=== PATIENT | female | born 1960 | race Caucasian/White ===

== ENCOUNTER → 2017-01-25 | Outpatient (CLI) | payer BC ==
[~2017-01-25] MED LIST: FOLI0.4T2 PO; NEBI5TAB3 PO; OMEP20CA4 PO
[2017-01-25 09:37] LABS: BASOPHILS % 0.7 % (0.0-2.0); EOSINOPHILS % 1.4 % (0.0-5.0); HEMATOCRIT. 41.1 % (36.0-48.0); HEMOGLOBIN. 13.8 g/dL (12.0-16.0); LYMPHOCYTES % 45.3 % (20.0-50.0); MEAN CORPUSCULAR HEMOGLOBIN 28.7 pg (28.0-32.0); MEAN CORPUSCULAR HGB CONC 33.6 g/dL (31.0-37.0); MEAN CORPUSCULAR VOLUME 85.4 fL (81.0-99.0); MEAN PLATELET VOLUME 8.6 fl (7.4-10.4); MONOCYTES % 7.7 % (2.0-8.0); NEUTROPHILS % 44.9 % (40.0-76.0); PLATELET 212 x1000/uL (130-400); RED BLOOD CELL COUNT 4.81 mill/uL (4.2-5.4); RED CELL DISTRIBUTION WIDTH 15.9 % (11.6-14.6); WHITE BLOOD COUNT 5.4 x1000/uL (4.5-11.0)
[2017-01-25 10:02] LABS: ALANINE AMINOTRANSFERASE 19 IU/L (13-61); ALBUMIN 3.6 g/dL (3.4-5.0); ANION GAP 11; BILIRUBIN DIRECT < 0.1 mg/dL (0.0-0.2); CALCIUM 8.1 mg/dL (8.5-10.1); CARBON DIOXIDE 28 mEq/L (21-32); CHLORIDE 108 mEq/L (98-107); HDL CHOLESTEROL 103 mg/dL (40-59); INDEX HEMOLYSI 1 (1-3); INDEX ICTERIC 1 (1-4); INDEX LIPEMIC 1 (1-3); LDL CHOLESTEROL 128 mg/dL (5-100); TRIGLYCERIDE 132 mg/dL (0-150); UREA NITROGEN BLOOD 8 mg/dL (7-21); eGFR > 60 mL/min (>60)
[2017-01-25 12:13] LABS: CLARITY URINE CLEAR (CLEAR); COLOR URINE YELLOW (YELLOW); GLUCOSE URINE NEGATIVE (NEGATIVE); KETONES URINE NEGATIVE (NEGATIVE); LEUKOCYTE ESTERASE URINE 1+ (NEGATIVE); NITRITE URINE NEGATIVE (NEGATIVE); OCCULT BLOOD URINE NEGATIVE (NEGATIVE); PROTEIN URINE NEGATIVE (NEGATIVE); UROBILINOGEN URINE 0.2 E.U./dL (0.2-1.0)
[2017-01-25 12:32] LABS: RBC URINE NONE SEEN /hpf (0-2); SQUAMOUS EPITHELIAL CELL URINE 1+ /lpf (RARE/1+)
[2017-01-25 12:33] LABS: BACTERIA URINE NONE SEEN; MUCUS URINE 1+ /lpf (< = 2+)
[2017-01-25 15:24] LABS: HEPATITIS B SURFACE ANTIGEN NEGATIVE
[2017-01-25 15:50] LABS: HEPATITIS C VIR.AB < 0.02 INDEXVAL (0.00-0.80)
[2017-01-26 14:11] LABS: VITAMIN D 25-OH 38.3 ng/mL (30.0-100.0)
== END | disposition home or self-care (01) ==
LOC: LAB 08:49
PROVIDERS: ATTEND Internal Medicine
DX: D64.9 Anemia, unspecified (principal)
CPT/HCPCS: 36415; 80053; 80061; 81001; 82248; 82306; 83036; 84443; 85025; 86592; 86803; 87186; 87340

== ENCOUNTER → 2017-03-09 | Outpatient (CLI) | payer BC ==
[2017-03-09 13:13] LABS: ALANINE AMINOTRANSFERASE 37 IU/L (13-61); ALBUMIN 3.7 g/dL (3.4-5.0); BILIRUBIN DIRECT < 0.1 mg/dL (0.0-0.2); INDEX HEMOLYSI 1 (1-3); INDEX ICTERIC 1 (1-4); INDEX LIPEMIC 1 (1-3)
== END | disposition home or self-care (01) ==
LOC: PVL 12:27
PROVIDERS: ATTEND Internal Medicine
DX: I73.9 Peripheral vascular disease, unspecified (principal); D64.9 Anemia, unspecified
CPT/HCPCS: 36415; 80076; 93923

== ENCOUNTER → 2017-06-14 | Outpatient (CLI) | payer BC ==
[2017-06-14 08:26] LABS: BASOPHILS % 0.6 % (0.0-2.0); HEMATOCRIT. 43.4 % (36.0-48.0); HEMOGLOBIN. 14.7 g/dL (12.0-16.0); LYMPHOCYTES % 41.8 % (20.0-50.0); MEAN CORPUSCULAR HEMOGLOBIN 29.3 pg (28.0-32.0); MEAN CORPUSCULAR VOLUME 86.5 fL (81.0-99.0); MEAN PLATELET VOLUME 8.6 fl (7.4-10.4); MONOCYTES % 7.1 % (2.0-8.0); NEUTROPHILS % 49.5 % (40.0-76.0); PLATELET 242 x1000/uL (130-400); RED BLOOD CELL COUNT 5.02 mill/uL (4.2-5.4); RED CELL DISTRIBUTION WIDTH 13.5 % (11.6-14.6)
[2017-06-14 09:02] LABS: CARBON DIOXIDE 30 mEq/L (21-32); CHLORIDE 106 mEq/L (98-107); HDL CHOLESTEROL 94 mg/dL (40-59); LDL CHOLESTEROL 106 mg/dL (5-100)
== END | disposition home or self-care (01) ==
LOC: LAB 07:37
PROVIDERS: ATTEND Internal Medicine
DX: D64.9 Anemia, unspecified (principal)
CPT/HCPCS: 36415; 80053; 80061; 85025

== ENCOUNTER → 2017-06-26 | Outpatient (CLI) | payer BC | END | disposition home or self-care (01) | LOC: MAMMO 12:35 | PROVIDERS: ATTEND Internal Medicine | DX: Z12.31 Encounter for screening mammogram for malignant neoplasm of breast (principal); M79.672 Pain in left foot; M79.671 Pain in right foot | CPT/HCPCS: 73630; G0202 ==

== ENCOUNTER → 2017-12-05 | Outpatient (CLI) | payer BC | END | disposition home or self-care (01) | LOC: LAB 09:37 | PROVIDERS: ATTEND Nurse Practitioner Acute Care | DX: R06.02 Shortness of breath (principal) | CPT/HCPCS: 87804 ==

== ENCOUNTER → 2018-01-17 | Outpatient (CLI) | payer BC ==
[2018-01-17 08:46] LABS: BASOPHILS % 0.6 % (0.0-2.0); EOSINOPHILS % 0.4 % (0.0-5.0); HEMATOCRIT. 42.7 % (36.0-48.0); HEMOGLOBIN. 14.5 g/dL (12.0-16.0); LYMPHOCYTES % 38.2 % (20.0-50.0); MEAN CORPUSCULAR HEMOGLOBIN 29.8 pg (28.0-32.0); MEAN CORPUSCULAR VOLUME 87.6 fL (81.0-99.0); MEAN PLATELET VOLUME 8.3 fl (7.4-10.4); NEUTROPHILS % 53.8 % (40.0-76.0); PLATELET 277 x1000/uL (130-400); RED BLOOD CELL COUNT 4.87 mill/uL (4.2-5.4); RED CELL DISTRIBUTION WIDTH 13.3 % (11.6-14.6)
[2018-01-17 09:21] LABS: CHLORIDE 105 mEq/L (98-107)
[2018-01-17 09:43] LABS: HDL CHOLESTEROL 101 mg/dL (40-59); LDL CHOLESTEROL 106 mg/dL (5-100); TOTAL IRON BINDING CAPACITY 386 ug/dL (250-450)
[2018-01-17 11:16] LABS: FOLIC ACID (FOLATE) SERUM > 20.00 ng/mL (>5.38)
[2018-01-17 11:21] LABS: FERRITIN 20 ng/mL (10-291)
[2018-01-17 14:15] LABS: CLARITY URINE CLEAR (CLEAR); COLOR URINE YELLOW (YELLOW); KETONES URINE NEGATIVE (NEGATIVE); LEUKOCYTE ESTERASE URINE NEGATIVE (NEGATIVE); NITRITE URINE NEGATIVE (NEGATIVE); OCCULT BLOOD URINE NEGATIVE (NEGATIVE); PH URINE 6.5 (4.5-8.0); PROTEIN URINE NEGATIVE (NEGATIVE); SPECIFIC GRAVITY URINE 1.018 (1.005-1.030)
[2018-01-18 05:20] LABS: PROLACTIN 13.1 ng/mL (4.8-23.3); VITAMIN D 25-OH 28.7 ng/mL (30.0-100.0)
== END | disposition home or self-care (01) ==
LOC: LAB 07:40
PROVIDERS: ATTEND Internal Medicine
DX: D64.9 Anemia, unspecified (principal); R06.02 Shortness of breath; R79.89 Other specified abnormal findings of blood chemistry
CPT/HCPCS: 36415; 80053; 80061; 81003; 82306; 82728; 82746; 83036; 83540; 83550; 83970; 84146; 84443; 85025

== ENCOUNTER → 2018-04-19 | Outpatient (CLI) | payer BC | END | disposition home or self-care (01) | LOC: MAMMO 11:14 | PROVIDERS: ATTEND Internal Medicine | DX: M81.0 Age-related osteoporosis without current pathological fracture (principal) | CPT/HCPCS: 77080 ==

== ENCOUNTER → 2018-08-20 | Outpatient (CLI) | payer BC | END | disposition home or self-care (01) | LOC: CARD 09:41 | PROVIDERS: ATTEND Nurse Practitioner Acute Care | DX: R07.89 Other chest pain (principal) | CPT/HCPCS: 93017 ==

== ENCOUNTER → 2018-12-26 | Outpatient (CLI) | payer BC ==
[2018-12-26 08:06] LABS: BASOPHILS % 0.6 % (0.0-2.0); EOSINOPHILS % 1.9 % (0.0-5.0); HEMATOCRIT. 43.4 % (36.0-48.0); HEMOGLOBIN. 14.5 g/dL (12.0-16.0); LYMPHOCYTES % 35.5 % (20.0-50.0); MEAN CORPUSCULAR HEMOGLOBIN 28.9 pg (28.0-32.0); MEAN CORPUSCULAR VOLUME 86.3 fL (81.0-99.0); MEAN PLATELET VOLUME 8.6 fl (7.4-10.4); MONOCYTES % 7.1 % (2.0-8.0); NEUTROPHILS % 54.9 % (40.0-76.0); PLATELET 262 x1000/uL (130-400); RED BLOOD CELL COUNT 5.02 mill/uL (4.2-5.4); RED CELL DISTRIBUTION WIDTH 13.4 % (11.6-14.6)
[2018-12-26 08:51] LABS: CHLORIDE 109 mEq/L (98-107)
[2018-12-26 09:04] LABS: LDL CHOLESTEROL 88 mg/dL (5-100)
[2018-12-26 09:06] LABS: TOTAL IRON BINDING CAPACITY 424 ug/dL (250-450)
[2018-12-26 09:08] LABS: HDL CHOLESTEROL 87 mg/dL (40-59)
[2018-12-26 09:09] LABS: T4 FREE 0.85 ng/dL (0.76-1.46)
[2018-12-26 10:04] LABS: VITAMIN B12 SERUM 424 pg/mL (211-911)
[2018-12-26 10:07] LABS: FOLIC ACID (FOLATE) SERUM > 20.00 ng/mL (>5.38)
[2018-12-26 11:27] LABS: FERRITIN 8 ng/mL (10-291)
== END | disposition home or self-care (01) ==
LOC: LAB 07:05
PROVIDERS: ATTEND Internal Medicine
DX: D64.9 Anemia, unspecified (principal)
CPT/HCPCS: 36415; 80061; 82306; 82607; 82728; 82746; 83036; 83540; 83550; 84439; 84443; 84481

== ENCOUNTER → 2019-03-21 | Outpatient (CLI) | payer BC ==
[~2019-03-21] MED LIST changes: +AMLO2.5T2 PO; +CLOP75TA4 PO; +MIRT15TA PO; +PROT40 PO; +RANI300T7 PO
== END | disposition home or self-care (01) ==
LOC: US 08:55
PROVIDERS: ATTEND Internal Medicine Gastroenterology
DX: K21.9 Gastro-esophageal reflux disease without esophagitis (principal); K83.8 Other specified diseases of biliary tract
CPT/HCPCS: 76700

== ENCOUNTER → 2019-04-14 | Outpatient (CLI) | payer BC ==
[2019-04-14 11:01] LABS: BASOPHILS % 0.5 % (0.0-2.0); HEMATOCRIT. 39.8 % (36.0-48.0); HEMOGLOBIN. 13.2 g/dL (12.0-16.0); LYMPHOCYTES % 43.7 % (20.0-50.0); MEAN CORPUSCULAR VOLUME 84.3 fL (81.0-99.0); MEAN PLATELET VOLUME 8.5 fl (7.4-10.4); MONOCYTES % 6.9 % (2.0-8.0); NEUTROPHILS % 47.9 % (40.0-76.0); PLATELET 253 x1000/uL (130-400); RED BLOOD CELL COUNT 4.73 mill/uL (4.2-5.4); RED CELL DISTRIBUTION WIDTH 14.4 % (11.6-14.6)
[2019-04-14 11:15] LABS: CHLORIDE 107 mEq/L (98-107)
[2019-04-14 11:18] LABS: GAMMA GLUTAMYL TRANSPEPTIDASE 19 IU/L (7-32)
[2019-04-14 11:21] LABS: LDL CHOLESTEROL 92 mg/dL (5-100)
[2019-04-14 11:23] LABS: HDL CHOLESTEROL 92 mg/dL (40-59); T4 FREE 0.81 ng/dL (0.76-1.46)
== END | disposition home or self-care (01) ==
LOC: LAB 10:42
PROVIDERS: ATTEND Internal Medicine Gastroenterology
DX: D64.9 Anemia, unspecified (principal)
CPT/HCPCS: 36415; 80061; 82977; 83036; 84439; 84443

== ENCOUNTER 2019-04-15 09:39 | Day surgery (SDC) | payer BC ==
[~2019-04-15] VITALS: Ht 160 cm; Wt 102.5 kg
[~2019-04-15 09:39] MED LIST changes: +LACTATED RINGERS 1,000 ML IV SCH
[2019-04-15 10:18] LABS: UCG SCREEN NEGATIVE
[2019-04-15] MEDS ORDERED: SIMETHICONE 40 MG/0.6 ML 30ML ONE (11:26)
[2019-04-15] MEDS ORDERED: LIDOCAINE HCL/PF 1% 10 MG/ML 5ML VIAL ONE (11:37)
[2019-04-15] MEDS ORDERED: MIDAZOLAM HCL 2 MG/2 ML VIAL ONE (11:37)
[2019-04-15] MEDS ORDERED: PROPOFOL 200MG/20ML VIAL IV ONE ×3 (11:37→12:10)
== END 2019-04-15 14:00 | disposition home or self-care (01) ==
LOC: OR 09:39
PROVIDERS: ATTEND Internal Medicine Gastroenterology
DX: K52.9 Noninfective gastroenteritis and colitis, unspecified (principal); K57.30 Diverticulosis of large intestine without perforation or abscess without bleeding; K21.9 Gastro-esophageal reflux disease without esophagitis; D64.9 Anemia, unspecified; E66.01 Morbid (severe) obesity due to excess calories; I10 Essential (primary) hypertension; E78.5 Hyperlipidemia, unspecified; G47.30 Sleep apnea, unspecified; M85.88 Other specified disorders of bone density and structure, other site; Z86.73 Personal history of transient ischemic attack (TIA), and cerebral infarction without residual deficits; Z98.84 Bariatric surgery status; Z79.899 Other long term (current) drug therapy; Z88.8 Allergy status to other drugs, medicaments and biological substances; Z68.41 Body mass index [BMI] 40.0-44.9, adult
CPT/HCPCS: 43239; 45378; 81025; 88305; 88312; 88313; 93005; J2250; J2704; J3490

== ENCOUNTER → 2019-07-22 | Outpatient (CLI) | payer BC ==
[~2019-07-22] MED LIST changes: -LACTATED RINGERS 1,000 ML IV SCH
== END | disposition home or self-care (01) ==
LOC: MAMMO 09:24
PROVIDERS: ATTEND Internal Medicine
DX: Z12.31 Encounter for screening mammogram for malignant neoplasm of breast (principal)
CPT/HCPCS: 77067

== ENCOUNTER → 2019-07-22 | Outpatient (CLI) | payer BC | END | disposition home or self-care (01) | LOC: MRI 09:29 | PROVIDERS: ATTEND Internal Medicine Gastroenterology | DX: K83.8 Other specified diseases of biliary tract (principal); K21.9 Gastro-esophageal reflux disease without esophagitis; Q45.3 Other congenital malformations of pancreas and pancreatic duct | CPT/HCPCS: 74181 ==

== ENCOUNTER → 2019-11-11 | Outpatient (CLI) | payer BC ==
[2019-11-11 15:35] LABS: BASOPHILS % 0.7 % (0.0-2.0); EOSINOPHILS % 0.9 % (0.0-5.0); HEMATOCRIT. 38.2 % (36.0-48.0); HEMOGLOBIN. 12.7 g/dL (12.0-16.0); LYMPHOCYTES % 29.8 % (20.0-50.0); MEAN CORPUSCULAR HEMOGLOBIN 27.5 pg (28.0-32.0); MEAN CORPUSCULAR VOLUME 82.4 fL (81.0-99.0); MEAN PLATELET VOLUME 8.7 fl (7.4-10.4); MONOCYTES % 7.3 % (2.0-8.0); NEUTROPHILS % 61.3 % (40.0-76.0); PLATELET 291 x1000/uL (130-400); RED BLOOD CELL COUNT 4.63 mill/uL (4.2-5.4)
[2019-11-11 15:46] LABS: CHLORIDE 108 mEq/L (98-107)
[2019-11-11 16:00] LABS: PARTIAL THROMBOPLASTIN TIME 27.3 sec (23.4-31.0); PROTHROMBIN TIME 10.1 sec (9.6-11.0)
== END | disposition home or self-care (01) ==
LOC: LAB 14:25
PROVIDERS: ATTEND Specialist
DX: I80.9 Phlebitis and thrombophlebitis of unspecified site (principal)
CPT/HCPCS: 36415; 80053; 85025

== ENCOUNTER → 2019-11-11 | Outpatient (CLI) | payer BC | END | disposition home or self-care (01) | LOC: US 07:55 | PROVIDERS: ATTEND Specialist | DX: I82.811 Embolism and thrombosis of superficial veins of right lower extremity (principal) | CPT/HCPCS: 93970 ==

== ENCOUNTER → 2020-02-02 | Outpatient (CLI) | payer BC ==
[2020-02-02 12:31] LABS: BASOPHILS % 0.9 % (0.0-2.0); EOSINOPHILS % 1.6 % (0.0-5.0); HEMATOCRIT. 39.2 % (36.0-48.0); HEMOGLOBIN. 13.1 g/dL (12.0-16.0); LYMPHOCYTES % 47.9 % (20.0-50.0); MEAN CORPUSCULAR HEMOGLOBIN 27.3 pg (28.0-32.0); MEAN CORPUSCULAR VOLUME 81.9 fL (81.0-99.0); MEAN PLATELET VOLUME 8.2 fl (7.4-10.4); MONOCYTES % 8.4 % (2.0-8.0); NEUTROPHILS % 41.2 % (40.0-76.0); PLATELET 275 x1000/uL (130-400); RED BLOOD CELL COUNT 4.79 mill/uL (4.2-5.4)
[2020-02-02 13:07] LABS: CHLORIDE 109 mEq/L (98-107)
[2020-02-02 13:17] LABS: LDL CHOLESTEROL 90 mg/dL (5-100); TOTAL IRON BINDING CAPACITY 400 ug/dL (250-450)
[2020-02-02 13:20] LABS: HDL CHOLESTEROL 96 mg/dL (40-59)
== END | disposition home or self-care (01) ==
LOC: LAB 11:59
PROVIDERS: ATTEND Internal Medicine
DX: D64.9 Anemia, unspecified (principal)
CPT/HCPCS: 36415; 80053; 80061; 82728; 83036; 83540; 83550; 84443; 85025

== ENCOUNTER → 2020-06-10 | Outpatient (CLI) | payer BC ==
[2020-06-10 08:48] LABS: CLARITY URINE CLEAR (CLEAR); COLOR URINE YELLOW (YELLOW); KETONES URINE TRACE (NEGATIVE); LEUKOCYTE ESTERASE URINE NEGATIVE (NEGATIVE); NITRITE URINE NEGATIVE (NEGATIVE); OCCULT BLOOD URINE NEGATIVE (NEGATIVE); PH URINE 6.5 (4.5-8.0); PROTEIN URINE NEGATIVE (NEGATIVE); SPECIFIC GRAVITY URINE 1.022 (1.005-1.030)
[2020-06-10 09:16] LABS: CANNABINOID URINE SCREEN NEGATIVE (NEGATIVE); PHENCYCLIDINE URINE SCREEN NEGATIVE (NEGATIVE)
[2020-06-10 09:17] LABS: *AMPHETAMINES SCREEN URINE NEGATIVE (NEGATIVE); *BARBITURATES SCREEN URINE NEGATIVE (NEGATIVE); *BENZODIAZEPINES SCREEN URINE PRESUMTIVE POSITIVE (NEGATIVE); *COCAINE SCREEN URINE NEGATIVE (NEGATIVE); METHADONE URINE SCREEN NEGATIVE (NEGATIVE); OPIATES URINE SCREEN NEGATIVE (NEGATIVE)
== END | disposition home or self-care (01) ==
LOC: LAB 07:03
PROVIDERS: ATTEND Internal Medicine
DX: M79.606 Pain in leg, unspecified (principal)
CPT/HCPCS: 80305; 81003

== ENCOUNTER → 2020-09-22 | Outpatient (CLI) | payer BC | END | disposition home or self-care (01) | LOC: LAB 09:35 | PROVIDERS: ATTEND Internal Medicine | DX: Z20.828 Contact with and (suspected) exposure to other viral communicable diseases (principal) | CPT/HCPCS: C9803; U0003 ==

== ENCOUNTER → 2020-11-17 | Outpatient (CLI) | payer BC ==
[~2020-11-17] MED LIST changes: +CLOP-31 PO; -CLOP75TA4 PO; +MIRT-118 PO; -MIRT15TA PO
[2020-11-17 10:40] LABS: BASOPHILS % 0.7 % (0.0-2.0); EOSINOPHILS % 1.9 % (0.0-5.0); HEMATOCRIT. 39.2 % (36.0-48.0); HEMOGLOBIN. 12.6 g/dL (12.0-16.0); LYMPHOCYTES % 42.8 % (20.0-50.0); MEAN CORPUSCULAR HEMOGLOBIN 25.7 pg (28.0-32.0); MEAN CORPUSCULAR VOLUME 79.6 fL (81.0-99.0); MEAN PLATELET VOLUME 8.2 fl (7.4-10.4); MONOCYTES % 6.9 % (2.0-8.0); NEUTROPHILS % 47.7 % (40.0-76.0); PLATELET 307 x1000/uL (130-400); RED BLOOD CELL COUNT 4.92 mill/uL (4.2-5.4); RED CELL DISTRIBUTION WIDTH 17.5 % (11.6-14.6)
[2020-11-17 10:48] LABS: CLARITY URINE CLEAR (CLEAR); COLOR URINE YELLOW (YELLOW); KETONES URINE NEGATIVE (NEGATIVE); LEUKOCYTE ESTERASE URINE NEGATIVE (NEGATIVE); NITRITE URINE NEGATIVE (NEGATIVE); OCCULT BLOOD URINE NEGATIVE (NEGATIVE); PROTEIN URINE NEGATIVE (NEGATIVE); SPECIFIC GRAVITY URINE 1.017 (1.005-1.030); UROBILINOGEN URINE 0.2 E.U./dL (0.2-1.0)
[2020-11-17 11:05] LABS: CHLORIDE 107 mEq/L (98-107)
[2020-11-17 11:16] LABS: LDL CHOLESTEROL 105 mg/dL (5-100)
[2020-11-17 11:18] LABS: HDL CHOLESTEROL 104 mg/dL (40-59)
[2020-11-17 11:19] LABS: TOTAL IRON BINDING CAPACITY 479 ug/dL (250-450)
[2020-11-17 11:44] LABS: VITAMIN B12 SERUM 296 pg/mL (211-911)
[2020-11-17 13:17] LABS: FERRITIN 12 ng/mL (10-291)
== END | disposition home or self-care (01) ==
LOC: LAB 09:58
PROVIDERS: ATTEND Internal Medicine
DX: D64.9 Anemia, unspecified (principal); R53.83 Other fatigue; E78.5 Hyperlipidemia, unspecified
CPT/HCPCS: 36415; 80053; 80061; 81003; 82306; 82607; 82728; 83036; 83540; 83550; 84443; 84550; 85025; 85651

== ENCOUNTER → 2020-11-17 | Outpatient (CLI) | payer OTHER | END | disposition home or self-care (01) | LOC: MAMMO 10:06 | PROVIDERS: ATTEND Radiology Diagnostic Radiology | DX: Z12.31 Encounter for screening mammogram for malignant neoplasm of breast (principal) | CPT/HCPCS: 77067 ==

== ENCOUNTER → 2021-02-24 | Outpatient (CLI) | payer BC ==
[~2021-02-24] MED LIST changes: -FOLI0.4T2 PO; +FOLI0.4T6 PO
[2021-02-24 07:42] LABS: BASOPHILS % 0.5 % (0.0-2.0); EOSINOPHILS % 1.5 % (0.0-5.0); HEMATOCRIT. 35.6 % (36.0-48.0); HEMOGLOBIN. 11.6 g/dL (12.0-16.0); LYMPHOCYTES % 46.5 % (20.0-50.0); MEAN CORPUSCULAR HEMOGLOBIN 25.8 pg (28.0-32.0); MEAN CORPUSCULAR VOLUME 78.9 fL (81.0-99.0); MEAN PLATELET VOLUME 8.1 fl (7.4-10.4); MONOCYTES % 9.6 % (2.0-8.0); NEUTROPHILS % 41.9 % (40.0-76.0); PLATELET 366 x1000/uL (130-400); RED BLOOD CELL COUNT 4.51 mill/uL (4.2-5.4); RED CELL DISTRIBUTION WIDTH 16.3 % (11.6-14.6)
[2021-02-24 07:53] LABS: CHLORIDE 107 mEq/L (98-107)
[2021-02-24 08:02] LABS: TOTAL IRON BINDING CAPACITY 468 ug/dL (250-450)
== END | disposition home or self-care (01) ==
LOC: LAB 07:04
PROVIDERS: ATTEND Internal Medicine
DX: D64.9 Anemia, unspecified (principal)
CPT/HCPCS: 36415; 80048; 82728; 83540; 83550; 85025

== ENCOUNTER → 2021-06-03 | Outpatient (CLI) | payer BC ==
[~2021-06-03] MED LIST changes: -CLOP-31 PO; +CLOP75TA4 PO
== END | disposition home or self-care (01) ==
LOC: RAD 11:03
PROVIDERS: ATTEND Internal Medicine Hematology & Oncology
DX: M81.0 Age-related osteoporosis without current pathological fracture (principal); M85.88 Other specified disorders of bone density and structure, other site; C43.71 Malignant melanoma of right lower limb, including hip; D50.0 Iron deficiency anemia secondary to blood loss (chronic)
CPT/HCPCS: 77080

== ENCOUNTER → 2021-06-22 | Outpatient (CLI) | payer BC ==
[~2021-06-22] MED LIST changes: +CLOP-31 PO; -CLOP75TA4 PO
== END | disposition home or self-care (01) ==
LOC: MRI 11:04
PROVIDERS: ATTEND Podiatrist Foot & Ankle Surgery
DX: S93.422A Sprain of deltoid ligament of left ankle, initial encounter (principal); S93.692A Other sprain of left foot, initial encounter; M72.2 Plantar fascial fibromatosis; M77.51 Other enthesopathy of right foot and ankle; M18.9 Osteoarthritis of first carpometacarpal joint, unspecified; M19.072 Primary osteoarthritis, left ankle and foot; X58.XXXA Exposure to other specified factors, initial encounter; Y93.89 Activity, other specified; Y92.89 Other specified places as the place of occurrence of the external cause; Y99.8 Other external cause status; M77.52 Other enthesopathy of left foot and ankle
CPT/HCPCS: 73630; 73721

== ENCOUNTER → 2021-09-01 | Outpatient (CLI) | payer BC ==
[2021-09-01 07:34] LABS: BASOPHILS % 0.6 % (0.0-2.0); EOSINOPHILS % 2.2 % (0.0-5.0); HEMATOCRIT. 42.2 % (36.0-48.0); HEMOGLOBIN. 14.1 g/dL (12.0-16.0); LYMPHOCYTES % 35.2 % (20.0-50.0); MEAN CORPUSCULAR HEMOGLOBIN 29.9 pg (28.0-32.0); MEAN CORPUSCULAR VOLUME 89.6 fL (81.0-99.0); MEAN PLATELET VOLUME 8.3 fl (7.4-10.4); MONOCYTES % 11.4 % (2.0-8.0); NEUTROPHILS % 50.6 % (40.0-76.0); PLATELET 212 x1000/uL (130-400); RED BLOOD CELL COUNT 4.72 mill/uL (4.2-5.4); RED CELL DISTRIBUTION WIDTH 13.3 % (11.6-14.6)
[2021-09-01 07:47] LABS: CHLORIDE 109 mEq/L (98-107)
[2021-09-01 07:56] LABS: TOTAL IRON BINDING CAPACITY 287 ug/dL (250-450)
== END | disposition home or self-care (01) ==
LOC: LAB 07:04
PROVIDERS: ATTEND Internal Medicine
DX: D64.9 Anemia, unspecified (principal); R06.02 Shortness of breath
CPT/HCPCS: 36415; 80053; 82728; 83036; 83540; 83550; 83735; 85025

== ENCOUNTER → 2021-10-31 | Outpatient (CLI) | payer BC | END | disposition home or self-care (01) | LOC: RAD 13:24 | PROVIDERS: ATTEND Podiatrist Foot & Ankle Surgery | DX: S92.321A Displaced fracture of second metatarsal bone, right foot, initial encounter for closed fracture (principal); S92.811A Other fracture of right foot, initial encounter for closed fracture; M25.571 Pain in right ankle and joints of right foot; X58.XXXA Exposure to other specified factors, initial encounter; Y93.89 Activity, other specified; Y92.89 Other specified places as the place of occurrence of the external cause; Y99.8 Other external cause status | CPT/HCPCS: 73630 ==

== ENCOUNTER → 2021-12-15 | Outpatient (CLI) | payer OTHER | END | disposition home or self-care (01) | LOC: MAMMO 07:43 | PROVIDERS: ATTEND Internal Medicine | DX: Z12.31 Encounter for screening mammogram for malignant neoplasm of breast (principal) | CPT/HCPCS: 77067 ==

== ENCOUNTER → 2022-10-06 | Outpatient (CLI) | payer BC ==
[2022-10-06 11:21] LABS: BASOPHILS % 0.7 % (0.0-2.0); EOSINOPHILS % 0.3 % (0.0-5.0); HEMATOCRIT. 43.5 % (36.0-48.0); HEMOGLOBIN. 14.7 g/dL (12.0-16.0); LYMPHOCYTES % 30.9 % (20.0-50.0); MEAN CORPUSCULAR HEMOGLOBIN 30.5 pg (28.0-32.0); MEAN CORPUSCULAR VOLUME 90.3 fL (81.0-99.0); MONOCYTES % 7.7 % (2.0-8.0); NEUTROPHILS % 60.4 % (40.0-76.0); RED BLOOD CELL COUNT 4.82 mill/uL (4.2-5.4); RED CELL DISTRIBUTION WIDTH 14.1 % (11.6-14.6)
[2022-10-06 12:17] LABS: CHLORIDE 107 mEq/L (98-107)
[2022-10-06 12:35] LABS: PLATELET 240 x1000/uL (130-400); VITAMIN B12 SERUM 224 pg/mL (211-911)
[2022-10-06 12:37] LABS: CREATINE KINASE 116 IU/L (26-192); HDL CHOLESTEROL 113 mg/dL (40-59); LDL CHOLESTEROL 153 mg/dL (5-100)
== END | disposition home or self-care (01) ==
LOC: LAB 10:51
PROVIDERS: ATTEND Specialist
DX: R94.31 Abnormal electrocardiogram [ECG] [EKG] (principal); I11.9 Hypertensive heart disease without heart failure; E78.2 Mixed hyperlipidemia
CPT/HCPCS: 36415; 80053; 80061; 82306; 82550; 82607; 84443; 85025

== ENCOUNTER → 2022-11-20 | Outpatient (CLI) | payer BC | END | disposition home or self-care (01) | LOC: MRI 10:16 | PROVIDERS: ATTEND Psychiatry & Neurology Neurology | DX: M48.02 Spinal stenosis, cervical region (principal); M50.21 Other cervical disc displacement, high cervical region; M47.812 Spondylosis without myelopathy or radiculopathy, cervical region; R51.9 Headache, unspecified | CPT/HCPCS: 70551; 72141 ==

== ENCOUNTER → 2023-02-28 | Outpatient (CLI) | payer BC ==
[2023-02-28 10:40] LABS: BASOPHILS % 0.5 % (0.0-2.0); EOSINOPHILS % 0.4 % (0.0-5.0); HEMATOCRIT. 43.9 % (36.0-48.0); HEMOGLOBIN. 15.1 g/dL (12.0-16.0); LYMPHOCYTES % 36.2 % (20.0-50.0); MEAN PLATELET VOLUME 8.2 fl (7.4-10.4); MONOCYTES % 5.6 % (2.0-8.0); NEUTROPHILS % 57.3 % (40.0-76.0); PLATELET 261 x1000/uL (130-400); RED BLOOD CELL COUNT 5.04 mill/uL (4.2-5.4); RED CELL DISTRIBUTION WIDTH 13.4 % (11.6-14.6)
[2023-02-28 10:43] LABS: CLARITY URINE CLEAR (CLEAR); COLOR URINE YELLOW (YELLOW); KETONES URINE NEGATIVE (NEGATIVE); LEUKOCYTE ESTERASE URINE TRACE (NEGATIVE); NITRITE URINE NEGATIVE (NEGATIVE); OCCULT BLOOD URINE NEGATIVE (NEGATIVE); PROTEIN URINE NEGATIVE (NEGATIVE); SPECIFIC GRAVITY URINE 1.013 (1.005-1.030); UROBILINOGEN URINE 0.2 E.U./dL (0.2-1.0)
[2023-02-28 10:56] LABS: CHLORIDE 105 mEq/L (98-107)
[2023-02-28 11:12] LABS: HDL CHOLESTEROL 103 mg/dL (40-59); LDL CHOLESTEROL 101 mg/dL (5-100)
[2023-02-28 11:49] LABS: FOLIC ACID (FOLATE) SERUM > 20.00 ng/mL (>5.38)
[2023-02-28 12:44] LABS: FERRITIN 27 ng/mL (10-291)
== END | disposition home or self-care (01) ==
LOC: LAB 10:09
PROVIDERS: ATTEND Internal Medicine
DX: Z11.59 Encounter for screening for other viral diseases (principal); E78.5 Hyperlipidemia, unspecified; R73.09 Other abnormal glucose; N93.0 Postcoital and contact bleeding; E55.9 Vitamin D deficiency, unspecified
CPT/HCPCS: 36415; 80053; 80061; 81003; 82306; 82728; 82746; 83036; 84443; 85025

== ENCOUNTER → 2023-03-22 | Outpatient (CLI) | payer BC ==
[2023-03-22 11:09] LABS: CLARITY URINE CLEAR (CLEAR); COLOR URINE YELLOW (YELLOW); KETONES URINE TRACE (NEGATIVE); LEUKOCYTE ESTERASE URINE TRACE (NEGATIVE); NITRITE URINE NEGATIVE (NEGATIVE); OCCULT BLOOD URINE NEGATIVE (NEGATIVE); PH URINE 6.5 (4.5-8.0); PROTEIN URINE TRACE (NEGATIVE); SPECIFIC GRAVITY URINE 1.016 (1.005-1.030)
[2023-03-22 11:19] LABS: CHLORIDE 101 mEq/L (98-107)
== END | disposition home or self-care (01) ==
LOC: LAB 10:07
DX: N39.0 Urinary tract infection, site not specified (principal); E87.1 Hypo-osmolality and hyponatremia
CPT/HCPCS: 36415; 80048; 81003

== ENCOUNTER → 2023-07-11 | Outpatient (CLI) | payer BC ==
[2023-07-11 09:11] LABS: INDEX HEMOLYSI 1 (1-3); INDEX ICTERIC 1 (1-4); INDEX LIPEMIC 1 (1-3)
[2023-07-11 09:15] LABS: IRON 86 ug/dL (50-175); TOTAL IRON BINDING CAPACITY 338 ug/dL (250-450)
== END | disposition home or self-care (01) ==
LOC: LAB 08:23
PROVIDERS: ATTEND Internal Medicine
DX: D64.9 Anemia, unspecified (principal)
CPT/HCPCS: 36415; 82728; 83540; 83550

== ENCOUNTER → 2023-07-11 | Outpatient (CLI) | payer BC ==
[2023-07-11 09:02] LABS: BASOPHILS % 0.7 % (0.0-2.0); EOSINOPHILS % 0.3 % (0.0-5.0); HEMATOCRIT. 41.9 % (36.0-48.0); HEMOGLOBIN. 14.3 g/dL (12.0-16.0); LYMPHOCYTES % 39.1 % (20.0-50.0); MEAN CORPUSCULAR HEMOGLOBIN 29.6 pg (28.0-32.0); MEAN CORPUSCULAR HGB CONC 34.2 g/dL (31.0-37.0); MEAN CORPUSCULAR VOLUME 86.7 fL (81.0-99.0); MEAN PLATELET VOLUME 8.2 fl (7.4-10.4); MONOCYTES % 7.2 % (2.0-8.0); NEUTROPHILS % 52.7 % (40.0-76.0); PLATELET 233 x1000/uL (130-400); RED BLOOD CELL COUNT 4.83 mill/uL (4.2-5.4); RED CELL DISTRIBUTION WIDTH 13.5 % (11.6-14.6); WHITE BLOOD COUNT 6.1 x1000/uL (4.5-11.0)
[2023-07-11 09:10] LABS: CHLORIDE 109 mEq/L (98-107); INDEX HEMOLYSI 1 (1-3); INDEX ICTERIC 1 (1-4); INDEX LIPEMIC 1 (1-3); POTASSIUM 4.7 mEq/L (3.5-5.1); SODIUM 139 mEq/L (136-145)
[2023-07-11 09:26] LABS: ALANINE AMINOTRANSFERASE 23 IU/L (13-61); ALBUMIN 3.6 g/dL (3.4-5.0); ASPARTATE AMINOTRANSFERASE 19 IU/L (15-37); BILIRUBIN TOTAL 0.4 mg/dL (0.1-1.0); CALCIUM 8.4 mg/dL (8.5-10.1); CARBON DIOXIDE 28 mEq/L (21-32); CHOLESTEROL 203 mg/dL (<200); CREATININE 0.9 mg/dL (0.6-1.3); GLUCOSE 93 mg/dL (70-105); HDL CHOLESTEROL 115 mg/dL (40-59); LDL CHOLESTEROL 82 mg/dL (5-100); PROTEIN TOTAL 7.1 g/dL (6.0-8.3); TRIGLYCERIDE 64 mg/dL (0-150); UREA NITROGEN BLOOD 9 mg/dL (7-21)
== END | disposition home or self-care (01) ==
LOC: LAB 08:18
PROVIDERS: ATTEND Specialist
DX: R94.31 Abnormal electrocardiogram [ECG] [EKG] (principal); I11.9 Hypertensive heart disease without heart failure; E78.2 Mixed hyperlipidemia
CPT/HCPCS: 36415; 80053; 80061; 82306; 83036; 84443; 85025

== ENCOUNTER 2023-08-07 17:10 | Inpatient (IN) | payer BC ==
[~2023-08-07] VITALS: Ht 160 cm; Wt 88.9 kg
[~2023-08-07 17:10] MED LIST changes: -MIRT-118 PO; +MIRT-144 PO
[2023-08-07] MEDS ORDERED: ONDANSETRON HCL 4MG/2ML INJ IV ONE (17:15)
[2023-08-07] MEDS ORDERED: SODIUM CHLORIDE 0.9% 1,000 ML IV ONE (17:15)
[2023-08-07] MEDS ORDERED: METOCLOPRAMIDE HCL 10MG/2ML VIAL IV ONE ×2 (17:45→19:00)
[2023-08-07 17:54] LABS: BASOPHILS % 0.4 % (0.0-2.0); EOSINOPHILS % 0.4 % (0.0-5.0); HEMATOCRIT. 42.8 % (36.0-48.0); HEMOGLOBIN. 14.8 g/dL (12.0-16.0); LYMPHOCYTES % 27.2 % (20.0-50.0); MEAN CORPUSCULAR HEMOGLOBIN 29.5 pg (28.0-32.0); MEAN CORPUSCULAR HGB CONC 34.6 g/dL (31.0-37.0); MEAN CORPUSCULAR VOLUME 85.3 fL (81.0-99.0); MEAN PLATELET VOLUME 8.6 fl (7.4-10.4); MONOCYTES % 6.1 % (2.0-8.0); NEUTROPHILS % 65.9 % (40.0-76.0); PLATELET 242 x1000/uL (130-400); RED BLOOD CELL COUNT 5.02 mill/uL (4.2-5.4); RED CELL DISTRIBUTION WIDTH 13.3 % (11.6-14.6); WHITE BLOOD COUNT 8.9 x1000/uL (4.5-11.0)
[2023-08-07 18:06] LABS: PROTHROMBIN TIME 10.9 sec (9.6-11.0)
[2023-08-07 18:11] LABS: CHLORIDE 108 mEq/L (98-107); INDEX HEMOLYSI 1 (1-3); INDEX ICTERIC 1 (1-4); INDEX LIPEMIC 1 (1-3); POTASSIUM 3.5 mEq/L (3.5-5.1); SODIUM 136 mEq/L (136-145)
[2023-08-07 18:20] LABS: ALANINE AMINOTRANSFERASE 26 IU/L (13-61); ASPARTATE AMINOTRANSFERASE 19 IU/L (15-37); BILIRUBIN TOTAL 0.5 mg/dL (0.1-1.0); CALCIUM 8.9 mg/dL (8.5-10.1); CARBON DIOXIDE 19 mEq/L (21-32); CREATININE 0.8 mg/dL (0.6-1.3); GLUCOSE 98 mg/dL (70-105); PROTEIN TOTAL 7.6 g/dL (6.0-8.3); TROPONIN I HIGH SENSITIVITY 5 ng/L (<54); UREA NITROGEN BLOOD 12 mg/dL (7-21)
[2023-08-07] MEDS ORDERED: ASPIRIN 325MG EC TABLET PO ONE (18:30)
[2023-08-07] MEDS ORDERED: MECLIZINE 25MG TABLET PO ONE (19:00)
[2023-08-07] MEDS ORDERED: DIPHENHYDRAMINE 50MG/ML VIAL IV ONE (19:00)
[2023-08-07 19:13] LABS: CLARITY URINE CLEAR (CLEAR); COLOR URINE YELLOW (YELLOW); GLUCOSE URINE NEGATIVE (NEGATIVE); KETONES URINE NEGATIVE (NEGATIVE); LEUKOCYTE ESTERASE URINE 1+ (NEGATIVE); NITRITE URINE NEGATIVE (NEGATIVE); OCCULT BLOOD URINE TRACE (NEGATIVE); PROTEIN URINE NEGATIVE (NEGATIVE); SPECIFIC GRAVITY URINE 1.019 (1.005-1.030); UROBILINOGEN URINE 0.2 E.U./dL (0.2-1.0)
[2023-08-07 19:17] LABS: BACTERIA URINE 2+; RBC URINE 0-2 /hpf (0-2); YEAST URINE NONE SEEN
[2023-08-07] MEDS ORDERED: IOHEXOL-350 100 ML BOTTLE ONE (20:00)
[2023-08-07 20:05] LABS: SQUAMOUS EPITHELIAL CELL URINE FEW /lpf (RARE/1+)
[2023-08-07] MEDS ORDERED: CEFTRIAXONE 1GM PREMIX 50 ML IV ONE (21:15)
[2023-08-07] MEDS ORDERED: IPRATROPIUM/ALBUTEROL 0.5-3(2.5)MG/3ML NEB HHN PRN (21:45)
[2023-08-07] MEDS ORDERED: ACETAMINOPHEN 325MG TABLET PO PRN ×2 (21:45)
[2023-08-07] MEDS ORDERED: CLONIDINE 0.1MG TABLET PO PRN (21:45)
[2023-08-07] MEDS ORDERED: LORAZEPAM 0.5MG TABLET PO PRN (21:45)
[2023-08-07] MEDS ORDERED: HYDROCODONE/ACETAMINOPHEN 5/325MG TABLET PO PRN (21:45)
[2023-08-07] MEDS ORDERED: DOCUSATE SODIUM 100MG CAPSULE PO PRN (21:45)
[2023-08-07] MEDS ORDERED: ONDANSETRON HCL 4MG/2ML INJ IV PRN (21:45)
[2023-08-07] MEDS: SODIUM CHLORIDE 0.9% 1,000 ML IV SCH (22:27)
[2023-08-07] MEDS ORDERED: TRAMADOL 50MG TABLET PO PRN (23:00)
[2023-08-07 23:52] LABS: PHOSPHORUS 3.1 mg/dL (2.5-4.9); T4 FREE 0.84 ng/dL (0.76-1.46); THYROID STIMULATING HORMONE 3.4 uIU/mL (0.36-3.74)
[2023-08-08] VITALS: BP 139/90; PULSE 58; RESP 17; TEMP 97.8
[2023-08-08] MEDS ORDERED: FOLI-43 PO (03:49)
[2023-08-08] MEDS ORDERED: ERGO1250 PO (03:49)
[2023-08-08] MEDS ORDERED: AMLO5TAB88 PO (03:49)
[2023-08-08] MEDS ORDERED: PRAV40TA58 PO (03:49)
[2023-08-08 04:00] VITALS: BP 153/71; PULSE 55; RESP 15; TEMP 97.7
[2023-08-08] MEDS ORDERED: SERT25TA74 PO (05:14)
[2023-08-08 06:53] LABS: BASOPHILS % 0.3 % (0.0-2.0); EOSINOPHILS % 0.5 % (0.0-5.0); HEMATOCRIT. 39.6 % (36.0-48.0); HEMOGLOBIN. 13.6 g/dL (12.0-16.0); LYMPHOCYTES % 28.1 % (20.0-50.0); MEAN CORPUSCULAR HEMOGLOBIN 29.4 pg (28.0-32.0); MEAN CORPUSCULAR HGB CONC 34.4 g/dL (31.0-37.0); MEAN CORPUSCULAR VOLUME 85.5 fL (81.0-99.0); MEAN PLATELET VOLUME 8.7 fl (7.4-10.4); MONOCYTES % 8.1 % (2.0-8.0); PLATELET 196 x1000/uL (130-400); RED BLOOD CELL COUNT 4.64 mill/uL (4.2-5.4); RED CELL DISTRIBUTION WIDTH 13.1 % (11.6-14.6); WHITE BLOOD COUNT 4.8 x1000/uL (4.5-11.0)
[2023-08-08 08:00] VITALS: BP 128/60; PULSE 54; RESP 14; TEMP 97.3
[2023-08-08] MEDS: SODIUM CHLORIDE 0.9% 1,000 ML IV SCH ×2 (08:00→17:44)
[2023-08-08] MEDS ORDERED: NALOXONE HCL 0.4MG/ML VIAL IV PRN (09:00)
[2023-08-08 09:31] LABS: CHLORIDE 112 mEq/L (98-107); INDEX HEMOLYSI 2 (1-3); INDEX ICTERIC 1 (1-4); INDEX LIPEMIC 1 (1-3); POTASSIUM 3.9 mEq/L (3.5-5.1); SODIUM 141 mEq/L (136-145)
[2023-08-08 09:40] LABS: ALANINE AMINOTRANSFERASE 19 IU/L (13-61); ALBUMIN 3.2 g/dL (3.4-5.0); ASPARTATE AMINOTRANSFERASE 18 IU/L (15-37); BILIRUBIN TOTAL 0.5 mg/dL (0.1-1.0); CALCIUM 8.5 mg/dL (8.5-10.1); CARBON DIOXIDE 21 mEq/L (21-32); CREATININE 0.7 mg/dL (0.6-1.3); GLUCOSE 95 mg/dL (70-105); PROTEIN TOTAL 6.4 g/dL (6.0-8.3); UREA NITROGEN BLOOD 8 mg/dL (7-21)
[2023-08-08] MEDS ORDERED: AMLODIPINE 5MG TABLET PO SCH (10:45)
[2023-08-08] MEDS ORDERED: PANTOPRAZOLE 40MG DR TABLET PO SCH (10:45)
[2023-08-08] MEDS ORDERED: SERTRALINE HCL 25MG TABLET PO SCH (10:45)
[2023-08-08] MEDS ORDERED: ASPIRIN 81MG TABLET PO SCH (11:00)
[2023-08-08] MEDS ORDERED: CEFTRIAXONE 1GM PREMIX 50 ML IV SCH (11:00)
[2023-08-08] MEDS ORDERED: CLOPIDOGREL 75MG TABLET PO SCH (11:24)
[2023-08-08] MEDS ORDERED: ATORVASTATIN CALCIUM 40MG TABLET PO SCH (11:25)
[2023-08-08 12:00] VITALS: BP 122/77; PULSE 56; RESP 16; TEMP 96.3
[2023-08-08] MEDS ORDERED: CEFTRIAXONE 1,000 MG in DEXTROSE 5% WATER 50 ML IV SCH (13:00)
[2023-08-08 15:35] VITALS: BP 129/62; PULSE 63; RESP 23; TEMP 98
[2023-08-08] MEDS ORDERED: ASPI-1160 PO (15:45)
[2023-08-08] MEDS ORDERED: NITR-87 MT (15:45)
[2023-08-08 16:04] VITALS: BP 122/77; PULSE 56; TEMP 96.3; O2SAT 97
[2023-08-08] MEDS ORDERED: FOLIC ACID 1MG TABLET PO SCH (17:00)
[2023-08-09] MEDS ORDERED: OMEPRAZOLE 20MG CAPSULE EXTENDED RELEASE PO SCH (09:00)
== END 2023-08-08 19:00 | disposition home or self-care (01) | DRG 69 ==
LOC: ER 17:10 → 3WST 21:46 → EDBEDREQ 21:48 → EDBEDREQTM 21:48
PROVIDERS: ADMIT Family Medicine Adult Medicine; ATTEND Family Medicine Adult Medicine
DX: G45.9 Transient cerebral ischemic attack, unspecified (principal); N39.0 Urinary tract infection, site not specified; E78.00 Pure hypercholesterolemia, unspecified; I10 Essential (primary) hypertension; R29.702 NIHSS score 2; E78.5 Hyperlipidemia, unspecified; Z79.02 Long term (current) use of antithrombotics/antiplatelets; Z79.899 Other long term (current) drug therapy; Z86.73 Personal history of transient ischemic attack (TIA), and cerebral infarction without residual deficits; Z98.84 Bariatric surgery status; Z88.8 Allergy status to other drugs, medicaments and biological substances
CPT/HCPCS: 36415; 70496; 70498; 70544; 70553; 71045; 80053; 80061; 81003; 82962; 83036; 83735; 84100; 84439; 84443; 84481; 84484; 85025; 93005; 93306; 99291; J0696; J1200; J2405; J2765; J7030; J7060; Q9967

== ENCOUNTER → 2023-08-10 | Outpatient (CLI) | payer BC ==
[~2023-08-10] MED LIST changes: -AMLO2.5T2 PO; +AMLO5TAB88 PO; +ASPI-1160 PO; +ERGO1250 PO; +FOLI-43 PO; -FOLI0.4T6 PO; +NITR-87 MT; -OMEP20CA4 PO; +PRAV40TA58 PO; -RANI300T7 PO; +SERT25TA74 PO
== END | disposition home or self-care (01) ==
LOC: MAMMO 11:05
PROVIDERS: ATTEND Internal Medicine
DX: Z12.31 Encounter for screening mammogram for malignant neoplasm of breast (principal); N63.10 Unspecified lump in the right breast, unspecified quadrant
CPT/HCPCS: 77067

== ENCOUNTER → 2023-08-17 | Outpatient (CLI) | payer BC | END | disposition home or self-care (01) | LOC: MAMMO 10:49 | PROVIDERS: ATTEND Internal Medicine | DX: N63.10 Unspecified lump in the right breast, unspecified quadrant (principal) | CPT/HCPCS: 76641; 77065 ==

== ENCOUNTER → 2023-09-07 | Outpatient (CLI) | payer BC ==
[~2023-09-07] MED LIST changes: +NEBI5TAB2 PO; -NEBI5TAB3 PO
== END | disposition home or self-care (01) ==
LOC: RAD 11:13
PROVIDERS: ATTEND Internal Medicine
DX: M81.0 Age-related osteoporosis without current pathological fracture (principal); M85.88 Other specified disorders of bone density and structure, other site
CPT/HCPCS: 77080

== ENCOUNTER → 2023-09-19 | Outpatient (CLI) | payer BC ==
[2023-09-19 10:57] LABS: CALCIUM 8.9 mg/dL (8.7-10.4); IRON 81 ug/dL (50-170); TOTAL IRON BINDING CAPACITY 194 ug/dl (250-425)
[2023-09-19 11:12] LABS: CLARITY URINE CLOUDY (CLEAR); COLOR URINE DARK YELLOW (YELLOW); GLUCOSE URINE NEGATIVE (NEGATIVE); KETONES URINE NEGATIVE (NEGATIVE); LEUKOCYTE ESTERASE URINE NEGATIVE (NEGATIVE); NITRITE URINE NEGATIVE (NEGATIVE); OCCULT BLOOD URINE NEGATIVE (NEGATIVE); PH URINE 5.5 (4.5-8.0); PROTEIN URINE NEGATIVE (NEGATIVE); SPECIFIC GRAVITY URINE 1.028 (1.005-1.030)
[2023-09-19 11:14] LABS: BACTERIA URINE NONE SEEN; WBC URINE 0-2 /hpf (0-2); YEAST URINE NONE SEEN
[2023-09-19 12:52] LABS: MUCUS URINE 2+ /lpf (< = 2+); SQUAMOUS EPITHELIAL CELL URINE 2+ /lpf (RARE/1+)
== END | disposition home or self-care (01) ==
LOC: LAB 08:40
PROVIDERS: ATTEND Internal Medicine
DX: D64.9 Anemia, unspecified (principal)
CPT/HCPCS: 36415; 81003; 82310; 82728; 83540; 83550

== ENCOUNTER → 2024-01-24 | Outpatient (CLI) | payer BC ==
[2024-01-24 08:19] LABS: CLARITY URINE CLEAR (CLEAR); COLOR URINE YELLOW (YELLOW); GLUCOSE URINE NEGATIVE (NEGATIVE); KETONES URINE NEGATIVE (NEGATIVE); LEUKOCYTE ESTERASE URINE NEGATIVE (NEGATIVE); NITRITE URINE NEGATIVE (NEGATIVE); OCCULT BLOOD URINE NEGATIVE (NEGATIVE); PROTEIN URINE NEGATIVE (NEGATIVE); SPECIFIC GRAVITY URINE 1.011 (1.005-1.030)
[2024-01-24 08:22] LABS: BASOPHILS % 0.7 % (0.0-2.0); EOSINOPHILS % 1.6 % (0.0-5.0); HEMATOCRIT. 41.6 % (36.0-48.0); LYMPHOCYTES % 43.8 % (20.0-50.0); MEAN CORPUSCULAR HEMOGLOBIN 29.1 pg (28.0-32.0); MEAN CORPUSCULAR HGB CONC 33.6 g/dL (31.0-37.0); MEAN CORPUSCULAR VOLUME 86.8 fL (81.0-99.0); MEAN PLATELET VOLUME 8.5 fl (7.4-10.4); MONOCYTES % 7.7 % (2.0-8.0); NEUTROPHILS % 46.2 % (40.0-76.0); PLATELET 254 x1000/uL (130-400); RED BLOOD CELL COUNT 4.79 mill/uL (4.2-5.4); RED CELL DISTRIBUTION WIDTH 13.3 % (11.6-14.6); WHITE BLOOD COUNT 6.2 x1000/uL (4.5-11.0)
[2024-01-24 09:08] LABS: ALANINE AMINOTRANSFERASE 14 IU/L (10-49); ALBUMIN 4.5 g/dL (3.2-4.8); ASPARTATE AMINOTRANSFERASE 28 IU/L (<34); BILIRUBIN TOTAL 0.4 mg/dL (0.1-1.0); CALCIUM 9.3 mg/dL (8.7-10.4); CARBON DIOXIDE 28 mEq/L (21-32); CHLORIDE 106 mEq/L (98-107); CHOLESTEROL 216 mg/dL (<200); CREATININE 0.8 mg/dL (0.6-1.0); GLUCOSE 87 mg/dL (70-105); HDL CHOLESTEROL 96 mg/dL (>65); LDL CHOLESTEROL 115 mg/dL (5-100); POTASSIUM 4.5 mEq/L (3.5-5.1); PROTEIN TOTAL 7.3 g/dL (6.0-8.3); SODIUM 140 mEq/L (136-145); TRIGLYCERIDE 58 mg/dL (0-150); UREA NITROGEN BLOOD 10 mg/dL (9-23)
== END | disposition home or self-care (01) ==
LOC: LAB 07:26
PROVIDERS: ATTEND Specialist
DX: I11.9 Hypertensive heart disease without heart failure (principal); R94.31 Abnormal electrocardiogram [ECG] [EKG]; E78.2 Mixed hyperlipidemia
CPT/HCPCS: 36415; 80053; 80061; 81003; 83735; 85025

== ENCOUNTER → 2024-04-21 | Outpatient (CLI) | payer OTHER | END | disposition home or self-care (01) | LOC: MAMMO 10:40 | PROVIDERS: ATTEND Radiology Diagnostic Radiology | DX: Z12.31 Encounter for screening mammogram for malignant neoplasm of breast (principal) | CPT/HCPCS: 77063; 77067 ==

== ENCOUNTER → 2024-04-23 | Outpatient (CLI) | payer BC ==
[2024-04-23 08:37] LABS: BASOPHILS % 0.5 % (0.0-2.0); EOSINOPHILS % 0.9 % (0.0-5.0); HEMATOCRIT. 42.2 % (36.0-48.0); HEMOGLOBIN. 14.2 g/dL (12.0-16.0); LYMPHOCYTES % 41.2 % (20.0-50.0); MEAN CORPUSCULAR HEMOGLOBIN 29.4 pg (28.0-32.0); MEAN CORPUSCULAR HGB CONC 33.7 g/dL (31.0-37.0); MEAN CORPUSCULAR VOLUME 87.2 fL (81.0-99.0); MONOCYTES % 8.1 % (2.0-8.0); NEUTROPHILS % 49.3 % (40.0-76.0); PLATELET 258 x1000/uL (130-400); RED BLOOD CELL COUNT 4.84 mill/uL (4.2-5.4); RED CELL DISTRIBUTION WIDTH 13.8 % (11.6-14.6); WHITE BLOOD COUNT 6.9 x1000/uL (4.5-11.0)
[2024-04-23 08:55] LABS: CHLORIDE 102 mEq/L (98-107); POTASSIUM 4.8 mEq/L (3.5-5.1); SODIUM 136 mEq/L (136-145)
[2024-04-23 08:56] LABS: CARBON DIOXIDE 28 mEq/L (21-32)
[2024-04-23 08:57] LABS: CALCIUM 9.3 mg/dL (8.7-10.4)
[2024-04-23 09:01] LABS: CREATININE 0.8 mg/dL (0.6-1.0); GLUCOSE 87 mg/dL (70-105)
[2024-04-23 09:02] LABS: LDL CHOLESTEROL 85 mg/dL (5-100); TRIGLYCERIDE 87 mg/dL (0-150); UREA NITROGEN BLOOD 10 mg/dL (9-23)
[2024-04-23 09:03] LABS: ALANINE AMINOTRANSFERASE 10 IU/L (10-49); ALBUMIN 4.5 g/dL (3.2-4.8); ASPARTATE AMINOTRANSFERASE 19 IU/L (<34); CHOLESTEROL 193 mg/dL (<200); HDL CHOLESTEROL 86 mg/dL (>65)
[2024-04-23 09:04] LABS: BILIRUBIN TOTAL 0.5 mg/dL (0.1-1.0); PROTEIN TOTAL 6.8 g/dL (6.0-8.3)
[2024-04-23 09:06] LABS: THYROID STIMULATING HORMONE 3.96 uIU/mL (0.55-4.78)
[2024-04-23 11:49] LABS: CLARITY URINE CLEAR (CLEAR); COLOR URINE YELLOW (YELLOW); GLUCOSE URINE NEGATIVE (NEGATIVE); KETONES URINE NEGATIVE (NEGATIVE); LEUKOCYTE ESTERASE URINE TRACE (NEGATIVE); NITRITE URINE NEGATIVE (NEGATIVE); OCCULT BLOOD URINE NEGATIVE (NEGATIVE); PROTEIN URINE NEGATIVE (NEGATIVE); SPECIFIC GRAVITY URINE 1.008 (1.005-1.030); UROBILINOGEN URINE 0.2 E.U./dL (0.2-1.0)
[2024-04-23 12:00] LABS: RBC URINE NONE SEEN /hpf (0-2); SQUAMOUS EPITHELIAL CELL URINE FEW /lpf (RARE/1+); WBC URINE 0-2 /hpf (0-2)
[2024-04-23 12:01] LABS: BACTERIA URINE TRACE
== END | disposition home or self-care (01) ==
LOC: LAB 08:05
PROVIDERS: ATTEND Specialist
DX: Z00.00 Encounter for general adult medical examination without abnormal findings (principal)
CPT/HCPCS: 36415; 80053; 80061; 81003; 84443; 85025

== ENCOUNTER → 2024-09-24 | Outpatient (CLI) | payer BC ==
[~2024-09-24] MED LIST changes: -NEBI5TAB2 PO; +NEBI5TAB9 PO
[2024-09-24 09:01] LABS: CHLORIDE 107 mEq/L (98-107); POTASSIUM 4.3 mEq/L (3.5-5.1); SODIUM 141 mEq/L (136-145)
[2024-09-24 09:02] LABS: CALCIUM 9.3 mg/dL (8.7-10.4); CARBON DIOXIDE 28 mEq/L (21-32)
[2024-09-24 09:07] LABS: CREATININE 0.9 mg/dL (0.6-1.0); GLUCOSE 84 mg/dL (70-105); IRON 84 ug/dL (50-170); TRIGLYCERIDE 93 mg/dL (0-150)
[2024-09-24 09:08] LABS: LDL CHOLESTEROL 92 mg/dL (5-100); UREA NITROGEN BLOOD 12 mg/dL (9-23)
[2024-09-24 09:09] LABS: ALANINE AMINOTRANSFERASE 13 IU/L (10-49); ALBUMIN 4.4 g/dL (3.2-4.8); ASPARTATE AMINOTRANSFERASE 20 IU/L (<34); CHOLESTEROL 188 mg/dL (<200); HDL CHOLESTEROL 82 mg/dL (>65)
[2024-09-24 09:10] LABS: BILIRUBIN TOTAL 0.4 mg/dL (0.1-1.0); PROTEIN TOTAL 7.2 g/dL (6.0-8.3); TOTAL IRON BINDING CAPACITY 254 ug/dl (250-425)
== END | disposition home or self-care (01) ==
LOC: LAB 08:05
PROVIDERS: ATTEND Specialist
DX: I11.9 Hypertensive heart disease without heart failure (principal); R94.31 Abnormal electrocardiogram [ECG] [EKG]; E78.2 Mixed hyperlipidemia
CPT/HCPCS: 36415; 80053; 80061; 82728; 83036; 83540; 83550

== ENCOUNTER → 2025-01-13 | Outpatient (CLI) | payer BC | END | disposition home or self-care (01) | LOC: RAD 11:53 | PROVIDERS: ATTEND Psychiatry & Neurology Neurology | DX: M25.562 Pain in left knee (principal) | CPT/HCPCS: 73562 ==

== ENCOUNTER → 2025-01-30 | Outpatient (CLI) | payer BC | END | disposition home or self-care (01) | LOC: MRI 07:38 | PROVIDERS: ATTEND Psychiatry & Neurology Neurology | DX: S83.242A Other tear of medial meniscus, current injury, left knee, initial encounter (principal); R93.7 Abnormal findings on diagnostic imaging of other parts of musculoskeletal system; M25.562 Pain in left knee; X58.XXXA Exposure to other specified factors, initial encounter; Y93.89 Activity, other specified; Y92.89 Other specified places as the place of occurrence of the external cause; Y99.8 Other external cause status | CPT/HCPCS: 73721 ==

== ENCOUNTER → 2025-04-27 | Outpatient (CLI) | payer BC ==
[~2025-04-27] MED LIST changes: +METH4TAB95 MT; +REGADENOSON 0.4 MG/5 ML IV ONE
== END | disposition home or self-care (01) ==
LOC: NM 07:48
PROVIDERS: ATTEND Specialist
DX: Z01.818 Encounter for other preprocedural examination (principal); I25.10 Atherosclerotic heart disease of native coronary artery without angina pectoris
CPT/HCPCS: 78452; 71046; 93017; J2785; A9500

== ENCOUNTER → 2025-04-28 | Outpatient (CLI) | payer BC ==
[~2025-04-28] MED LIST changes: -REGADENOSON 0.4 MG/5 ML IV ONE
== END | disposition home or self-care (01) ==
LOC: US 13:47
PROVIDERS: ATTEND Specialist
DX: Z01.818 Encounter for other preprocedural examination (principal); I82.403 Acute embolism and thrombosis of unspecified deep veins of lower extremity, bilateral
CPT/HCPCS: 93970

== ENCOUNTER → 2025-04-29 | Outpatient (CLI) | payer BC ==
[~2025-04-29] MED LIST changes: +FAMO40TA70 PO
[2025-04-29 09:09] LABS: BASOPHILS % 0.6 % (0.0-2.0); EOSINOPHILS % 1.0 % (0.0-5.0); HEMATOCRIT. 41.8 % (36.0-48.0); HEMOGLOBIN. 14.0 g/dL (12.0-16.0); LYMPHOCYTES % 40.2 % (20.0-50.0); MEAN PLATELET VOLUME 8.6 fl (7.4-10.4); MONOCYTES % 7.8 % (2.0-8.0); NEUTROPHILS % 50.4 % (40.0-76.0); PLATELET 239 x1000/uL (130-400); RED BLOOD CELL COUNT 4.79 mill/uL (4.2-5.4); RED CELL DISTRIBUTION WIDTH 13.4 % (11.6-14.6)
[2025-04-29 09:24] LABS: CREATININE 0.9 mg/dL (0.6-1.0); TRIGLYCERIDE 78 mg/dL (0-150); UREA NITROGEN BLOOD 9 mg/dL (9-23)
[2025-04-29 09:25] LABS: LDL CHOLESTEROL 68 mg/dL (5-100)
[2025-04-29 09:26] LABS: ASPARTATE AMINOTRANSFERASE 18 IU/L (<34); BILIRUBIN DIRECT 0.2 mg/dL (<=3.0); BILIRUBIN TOTAL 0.6 mg/dL (0.1-1.0); PROTEIN TOTAL 6.7 g/dL (6.0-8.3)
[2025-04-29 09:33] LABS: CLARITY URINE CLEAR (CLEAR); COLOR URINE YELLOW (YELLOW); GLUCOSE URINE NEGATIVE (NEGATIVE); KETONES URINE NEGATIVE (NEGATIVE); LEUKOCYTE ESTERASE URINE TRACE (NEGATIVE); NITRITE URINE NEGATIVE (NEGATIVE); OCCULT BLOOD URINE NEGATIVE (NEGATIVE); PH URINE 7.0 (4.5-8.0); PROTEIN URINE NEGATIVE (NEGATIVE); SPECIFIC GRAVITY URINE 1.016 (1.005-1.030); UROBILINOGEN URINE 1.0 E.U./dL (0.2-1.0)
[2025-04-29 09:43] LABS: INR 1.0
[2025-04-29 10:01] LABS: MUCUS URINE TRACE /lpf (< = 2+); SQUAMOUS EPITHELIAL CELL URINE FEW /lpf (RARE/1+)
[2025-04-29 10:02] LABS: BACTERIA URINE TRACE; RBC URINE 0-2 /hpf (0-2); WBC URINE 0-2 /hpf (0-2)
[2025-04-30 09:11] LABS: VITAMIN D 25-OH 39.0 ng/mL (30.0-100.0)
[2025-04-30 13:12] LABS: T4 THYROXINE 6.0 ug/dL (4.5-12.0)
== END | disposition home or self-care (01) ==
LOC: LAB 08:34
PROVIDERS: ATTEND Internal Medicine
DX: Z01.812 Encounter for preprocedural laboratory examination (principal); I10 Essential (primary) hypertension; E78.5 Hyperlipidemia, unspecified; N39.0 Urinary tract infection, site not specified; E55.9 Vitamin D deficiency, unspecified; E03.9 Hypothyroidism, unspecified; D64.9 Anemia, unspecified; R73.09 Other abnormal glucose; Z79.899 Other long term (current) drug therapy
CPT/HCPCS: 36415; 80053; 80061; 80076; 81003; 82306; 82728; 84436; 84443; 85025

== ENCOUNTER → 2025-05-04 | Day surgery (SDC) | payer BC ==
[~2025-05-04] VITALS: Ht 160 cm; Wt 90.7 kg
[~2025-05-04] MED LIST changes: +BACITRACIN 14GM TUBE TOP ONE; +BUPIVACAINE HCL/PF 0.5% (5MG/ML) 10ML ONE; +DEXAMETHASONE 4MG/ML 1ML VIAL IV PRN; +DEXT 5%/0.45% NACL KCL 20MEQ/L 1,000 ML IV SCH; +EPINEPHRINE 1:1000 1 MG/ML AMP ONE; -ERGO1250 PO; +FENTANYL CITRATE/PF 50MCG/ML 2ML VIAL ONE; +GLYCOPYRROLATE 0.2 MG/ML 2ML VIAL IV PRN; +HYDR-4001 MT; +HYDRALAZINE 20MG/ML VIAL IV PRN; +HYDROCODONE/ACETAMINOPHEN 5/325MG TABLET PO PRN; +HYDROMORPHONE HCL/PF 1MG/ML INJ IV PRN; +HYDROMORPHONE HCL/PF 1MG/ML INJ ONE; +KETOROLAC 30MG/ML VIAL IV PRN; +LABETALOL 5MG/ML 4ML INJ IV PRN; +LIDOCAINE HCL/EPINEPHRINE 1%-EPI 1:100,000 20ML VIAL ONE; +MIDAZOLAM HCL 2 MG/2 ML VIAL ONE; -MIRT-144 PO; +NALOXONE HCL 0.4MG/ML VIAL IV PRN; -NEBI5TAB9 PO; +ONDANSETRON HCL 4MG/2ML INJ IV PRN; +PROPOFOL 200MG/20ML VIAL IV ONE; -PROT40 PO; -SERT25TA74 PO; +SODIUM CHLORIDE 0.9% 3ML FLUSH IVF SCH; +TRAM100C3 MT; +TRIAMCINOLONE ACETONIDE 40MG/ML 1ML VIAL ONE
[2025-05-04] MEDS: LACTATED RINGERS 1,000 ML IV SCH (06:26)
[2025-05-04] MEDS: KETOROLAC 30MG/ML VIAL IV NR (09:18)
[2025-05-04 10:31] VITALS: BP 124/79; PULSE 56; RESP 14
[2025-05-04] MEDS: TRAMADOL 50MG TABLET PO NR (10:31)
== END | disposition home or self-care (01) ==
LOC: OR 06:09
DX: S83.242A Other tear of medial meniscus, current injury, left knee, initial encounter (principal); M94.262 Chondromalacia, left knee; G89.29 Other chronic pain; I10 Essential (primary) hypertension; E78.00 Pure hypercholesterolemia, unspecified; Z86.2 Personal history of diseases of the blood and blood-forming organs and certain disorders involving the immune mechanism; Z79.899 Other long term (current) drug therapy; Z98.890 Other specified postprocedural states; X58.XXXA Exposure to other specified factors, initial encounter; Y93.89 Activity, other specified; Y92.89 Other specified places as the place of occurrence of the external cause; Y99.8 Other external cause status
CPT/HCPCS: 29883; 97161; 88311; 88305; 97116; J1885; J3010; J0665; J3490; J2004; J2250; J2704; J3301; J1171; J7120; C1713

== ENCOUNTER → 2025-09-29 | Outpatient (CLI) | payer BC ==
[~2025-09-29] MED LIST changes: -BACITRACIN 14GM TUBE TOP ONE; -BUPIVACAINE HCL/PF 0.5% (5MG/ML) 10ML ONE; +CEL200 MT; -DEXAMETHASONE 4MG/ML 1ML VIAL IV PRN; -DEXT 5%/0.45% NACL KCL 20MEQ/L 1,000 ML IV SCH; -EPINEPHRINE 1:1000 1 MG/ML AMP ONE; -FENTANYL CITRATE/PF 50MCG/ML 2ML VIAL ONE; -GLYCOPYRROLATE 0.2 MG/ML 2ML VIAL IV PRN; -HYDRALAZINE 20MG/ML VIAL IV PRN; -HYDROCODONE/ACETAMINOPHEN 5/325MG TABLET PO PRN; -HYDROMORPHONE HCL/PF 1MG/ML INJ IV PRN; -HYDROMORPHONE HCL/PF 1MG/ML INJ ONE; -KETOROLAC 30MG/ML VIAL IV PRN; -LABETALOL 5MG/ML 4ML INJ IV PRN; -LIDOCAINE HCL/EPINEPHRINE 1%-EPI 1:100,000 20ML VIAL ONE; -MIDAZOLAM HCL 2 MG/2 ML VIAL ONE; -NALOXONE HCL 0.4MG/ML VIAL IV PRN; -ONDANSETRON HCL 4MG/2ML INJ IV PRN; -PROPOFOL 200MG/20ML VIAL IV ONE; -SODIUM CHLORIDE 0.9% 3ML FLUSH IVF SCH; -TRIAMCINOLONE ACETONIDE 40MG/ML 1ML VIAL ONE
[2025-09-29 07:46] LABS: BASOPHILS % 0.6 % (0.0-2.0); EOSINOPHILS % 1.5 % (0.0-5.0); HEMATOCRIT. 40.7 % (36.0-48.0); HEMOGLOBIN. 13.7 g/dL (12.0-16.0); LYMPHOCYTES % 42.6 % (20.0-50.0); MEAN PLATELET VOLUME 8.1 fl (7.4-10.4); MONOCYTES % 8.6 % (2.0-8.0); NEUTROPHILS % 46.7 % (40.0-76.0); PLATELET 286 x1000/uL (130-400); RED BLOOD CELL COUNT 4.71 mill/uL (4.2-5.4); RED CELL DISTRIBUTION WIDTH 13.7 % (11.6-14.6)
[2025-09-29 08:00] LABS: CREATININE 0.8 mg/dL (0.6-1.0); PROTEIN TOTAL 6.7 g/dL (6.0-8.3); TRIGLYCERIDE 96 mg/dL (0-150); UREA NITROGEN BLOOD 7 mg/dL (9-23)
[2025-09-29 08:01] LABS: ASPARTATE AMINOTRANSFERASE 17 IU/L (<34); LDL CHOLESTEROL 146 mg/dL (5-100)
[2025-09-29 08:02] LABS: BILIRUBIN TOTAL 0.3 mg/dL (0.1-1.0)
[2025-09-29 08:09] LABS: FOLIC ACID (FOLATE) SERUM > 20.00 ng/mL (>5.38)
== END | disposition home or self-care (01) ==
LOC: LAB 07:12
PROVIDERS: ATTEND Internal Medicine
DX: D64.9 Anemia, unspecified (principal); Z79.899 Other long term (current) drug therapy
CPT/HCPCS: 36415; 80053; 80061; 82728; 82746; 83036; 83540; 83735; 84443; 85025

== ENCOUNTER → 2025-10-05 | Outpatient (CLI) | payer BC | END | disposition home or self-care (01) | LOC: RAD 09:52 | PROVIDERS: ATTEND Obstetrics & Gynecology | DX: Z12.31 Encounter for screening mammogram for malignant neoplasm of breast (principal); R92.323 Mammographic fibroglandular density, bilateral breasts | CPT/HCPCS: 77063; 77067 ==